=== PATIENT | female | born 1980 | race Caucasian/White ===

== ENCOUNTER → 2017-04-19 | Outpatient (CLI) | payer BC ==
[2017-04-19 18:57] LABS: STREP SCREEN NEGATIVE (NEGATIVE)
[2017-04-20 17:27] LABS: T3 FREE 2.8 pg/mL (1.7-3.7)
== END ==
LOC: LAB 17:00
PROVIDERS: Family Medicine
DX: R59.1 Generalized enlarged lymph nodes (principal); M54.2 Cervicalgia

== ENCOUNTER 2018-09-27 13:30 | Outpatient (RCR) | payer BC | END 2018-09-27 14:00 | LOC: PT 13:30 | DX: M25.572 Pain in left ankle and joints of left foot (principal) ==

== ENCOUNTER → 2019-05-03 | Outpatient (CLI) | payer BC | LOC: RAD 16:48 | DX: M79.89 Other specified soft tissue disorders (principal); Z87.828 Personal history of other (healed) physical injury and trauma ==

== ENCOUNTER 2020-04-16 16:12 | Emergency (ER) | payer OTHER, BC ==
[2020-04-16 16:20] VITALS: BP 144/83
[2020-04-16] MEDS ORDERED: ZYRTEC ALLERGY10 MG PO (16:23)
[2020-04-16] MEDS ORDERED: CYCLOBENZAPRINE10 M1 PO (17:40)
== END 2020-04-16 17:45 | disposition home or self-care (01) ==
LOC: ED 16:12
DX: M54.16 Radiculopathy, lumbar region (principal); Z88.0 Allergy status to penicillin; V49.40XA Driver injured in collision with unspecified motor vehicles in traffic accident, initial encounter
CPT/HCPCS: J1885

== ENCOUNTER → 2021-04-06 | Outpatient (CLI) | payer BC ==
[~2021-04-06] MED LIST: CYCLOBENZAPRINE10 M1 PO; ZYRTEC ALLERGY10 MG PO
== END ==
LOC: MAMMO 13:58
DX: Z12.31 Encounter for screening mammogram for malignant neoplasm of breast (principal)

== ENCOUNTER → 2021-05-10 | Outpatient (CLI) | payer BC | LOC: RAD 09:38 | DX: R56.9 Unspecified convulsions (principal); J34.89 Other specified disorders of nose and nasal sinuses ==

== ENCOUNTER → 2023-05-30 | Outpatient (CLI) | payer BC | LOC: MAMMO 08:30 | DX: Z12.31 Encounter for screening mammogram for malignant neoplasm of breast (principal) ==